=== PATIENT | female | born 1970 ===

== ENCOUNTER 2019-10-25 15:00 | Day surgery (SDC) | payer OTHER ==
[~2019-10-25 15:00] MED LIST: GLUCOTROL10 MG PO; HUMULIN 70100 UNIT/1; IOPHEN DM-100 MG/5 M PO; LISINO PO; TOPROL XL25 M1 PO
== END 2019-10-25 21:30 | disposition home or self-care (01) ==
LOC: CIR.AMB 15:00
PROVIDERS: ATTEND Obstetrics & Gynecology Obstetrics
DX: N84.0 Polyp of corpus uteri (principal); N93.9 Abnormal uterine and vaginal bleeding, unspecified